=== PATIENT | male | born 2000 | race Caucasian/White ===

== ENCOUNTER 2020-02-09 22:51 | Emergency (ER) | payer SELFPAY ==
[~2020-02-09] VITALS: Ht 182.9 cm; Wt 95.3 kg
[2020-02-09 23:49] VITALS: BP 123/75
[2020-02-10] MEDS ORDERED: LIDOCAINE 1% HCL (LOCAL ANESTH.) INJ 20ML MDV ONE (02:58)
== END 2020-02-10 03:35 | disposition home or self-care (01) ==
LOC: ER 22:51
DX: S81.811A Laceration without foreign body, right lower leg, initial encounter (principal); S89.91XA Unspecified injury of right lower leg, initial encounter; W01.0XXA Fall on same level from slipping, tripping and stumbling without subsequent striking against object, initial encounter; Y93.89 Activity, other specified; Y92.89 Other specified places as the place of occurrence of the external cause; Y99.8 Other external cause status
CPT/HCPCS: 73590; 99283; J2001

== ENCOUNTER 2020-02-24 15:11 | Emergency (ER) | payer SELFPAY ==
[~2020-02-24] VITALS: Ht 182.9 cm; Wt 97.5 kg
[2020-02-24 15:17] VITALS: BP 108/70
== END 2020-02-24 17:00 | disposition home or self-care (01) ==
LOC: ER 15:11
DX: Z48.00 Encounter for change or removal of nonsurgical wound dressing (principal)